=== PATIENT | male | born 2005 | race African-American/Black ===

== ENCOUNTER 2025-02-02 20:07 | Emergency (ER) | payer SELFPAY ==
--- NOTE | ~2025-02-02 | XR_ITS ---
EXAMINATION: XR chest 1V portable DATE: 02/02/2025 22:05 INDICATION: Tachycardia. Marijuana ingestion. TECHNIQUE: AP view of the chest was obtained. COMPARISON: None FINDINGS: The lungs are clear with no focal airspace opacities, pulmonary edema, pleural effusion or pneumothor ax. The cardiomediastinal silhouette is normal. Mild lower thoracic levocurvature. IMPRESSION: 1. No acute cardiopulmonary disease. Reviewed, dictated and finalized at location A.
[2025-02-02 20:07] VITALS: BP 135/74; PULSE 134; RESP 17; TEMP 37.3; O2SAT 100
[2025-02-02 20:12] VITALS: PULSE 139
--- OUTSIDE RECORDS SUMMARY | 2025-02-02 20:22 | XMS_ITS | Clinical Summary ---
Author Organization [facility] Address [address] [place] [address] Phone Care Team Providers Care Poem Writer Name Role Phone Unavailable Primary Care Provider Unavailabl e Allergies No known active allergies Medications No known medications Active Problems Problem Noted Date Diagnosed Date Well child check 04/13/2018 Overview (04/20/2018): 10/2017- Last [facility] with Dr. Ty. Assessment & Plan (04/13/2018 5:56 PM CDT): Anticipatory guidance done including seat belt safety and water safety. Fire safety and bug avoidance discussed. Sexual preferences, safe sex practices, and discussion on healthy relationships discussed. Maintaining healthy friendships, bullying, and mental health also discussed. Handout given to reiterate important points. 5-2-1-0 (5 fruits and vegetables per day, less than 2 hours of screen time per day, at least 1 hour of activity per day, and 0 sweetened beverages) also discussed. School physical form completed today. Hearing screen passed. Depression screens negative. Vaccines updated today. Dentistry referral placed today as pt without dental home. Failed vision screen 04/13/2018 Assessment & Plan (04/13/2018 2:15 PM CDT): Pt failed vision screen, mom told to take pt to [facility]. Saxon-Schlatter's disease of both knees 018 Assessment & Plan (04/13/2018 5:57 PM CDT): Supportive care recommended with ibuprofen, rest, ice, and elevation. Pt and guardian explained what disease is. If no improvement, pt to return to clinic. Bilateral headaches 04/13/2018 Assessment & Plan (04/13/2018 6:35 PM CDT): Occur once in a while as per guardian, without any red flag symptoms. Pt to have vision checked as he failed vision screen and headaches can be refractory to this. Pt told to keep headache diary to better assess frequency and associated symptoms. Red flags of headaches including pain awakening pt from sleep, vomiting after awakening, changes in vision or mental status, persistent vomiting, increasing frequency of headaches, and worsening of headaches discussed with patient and parent. Pt to return in 1 week for ADHD and headache follow up. Immunizations Immunization Administration Dates Next Due DTAP VACCINE, UNSPECIFIED FORMULATION 06/24/2006 ,05/05/2006 DTAP-IPV 04/21/2011 DTAP/HEPB/IPV Vaccine 09/28/2008,02/10/2006 Hepatitis A Vaccine,unspecified Formulation 09/10 Hepatitis A, Pediatric, Unsp ecified Formulation 10/18/2009 Hepatitis B Vaccine,unspecified Formulation 08/14 Hib Vaccine,unspecified Formulation 06/24/2006,1 ,02/10/2006 Human Papillomavirus (HPV) 9-valent Vaccine 08/2017 Influenza Vaccine, Quadrivalent, PF 04/13/2018,1 Influenza Vaccine,unspecified Formulation 2011,06/30/2006 MMR Vaccine 04/21/2011,09/28/2008 Meningococcal MCV4O 12/17/2016 Pneumococcal Vaccine - 13 Valent 06/24/2006,04/13,02/10/2006 Pneumococcal Vaccine Peds - 7 Valent 09/28/2008 Polio Vaccine,unspecified Formulation 05/05/2006 TDAP Vaccine 12/17/2016 Varicella Vaccine Live 04/21/2011,09/28/2008 Family History Medical History Relation Name Comments Diabetes Brother Hypertension Brother Other-comment Brother Sickling disor maricel due to hemoglobin S Sickle Cell Trait Father Congenital Heart Disease Maternal Grandfather Diabetes Maternal Grandfather Hypertension Maternal Grandfather Cancer Maternal Grandmother colon Congenital Heart Disease Maternal Grandmother Diabetes Maternal Grandmother Congenital Heart Disease Maternal Uncle u kamryn when he was 18 Diabetes Mother Sickle Cell Trait Mother Relation Name Status Comments Brother Father Maternal Grandfather Maternal Grandmother Maternal Uncle Mother Social History Tobacco Use Types Packs/Day Years Used Date Smoking Tobacco: Never Smokeless Tobacco: Never Alcohol Use Standard Drinks/Week Comments No 0 (1 standard drink = 0.6 oz pur e alcohol) PHQ-2 Answer Date Recorded PHQ-2 Score 0 03/29/2019 Sex and Gender Information Value Date Recorded Sex Assigned at Not on file Legal Sex Male 8:01 AM [employer] Gender Identity Not on file Sexual Orientation Not on file Last Filed Vital Signs Vital Sign Reading Time Taken Comments Blood Pressure 110/50 04/13/2018 2:03 PM CDT Pulse 78 04/13/2018 2:03 PM CDT Temperature 36.8 C (98.3 F) 04/13/2018 2:03 PM CDT Respiratory Rate 20 04/13/2018 2:03 PM CDT Oxygen Saturation 98% 04/13/2018 2:03 PM CDT Inhaled Oxygen Concentration - - Weight 51.1 kg (112 lb 11.2 oz) 04/13/2018 2:03 PM CDT Height 161.9 cm (5' 3.75) 04/13/2018 2:03 PM CD T Body Mass Index 19.5 04/13/2018 2:03 PM CDT Body Mass Index Percentile 68.53% 04/13/2018 2:0 3 PM CDT Growth Chart: [facility] (Boys, 2-2 0 Years) Plan of Treatment Health Maintenance Due Date Last Done Comments Hepatitis C Virus (HCV) Screening 2005 Human Papillomavirus (HPV) Immunization (2 - Male 2-dose series) 10/12/2018 04/13/2018 Meningococcal B Immunization (1 of 2 - Standard) 2021 SARS-COV-2 Immunization ( - season) 2024 Influenza Immunization (#1) 03/13/202508/2017, 04/20/2014, 04/28/2012, Additional history exists DTaP/Tdap/Td Immunization (7 - Td or Tdap) 12/17/2026 12/17/2016, 04/21/2011, 09/28/2008, Additional history exists Respiratory Syncytial Virus (RSV) Immunization (Adult) (1 - 1-dose 75+ series) 2080 Hepatitis B Immunization Completed 009, 02/10/2006, 2005 Pneumococcal Immunization Combined Completed 09/28/2008, 06/24/2006, 05/05/2006, Additional history exists Hepatitis A Immunization Discontinued 10/18/2009, 09/10 Measles Mumps Rubella (MMR) Immunization Discontinued 04/21/2011, 09/28/2008 Polio (IPV) Immunization Discontinued 011, 09/28/2008, 02/10/2006 Varicella Immunization Discontinued 04/21/2011, 2008 Meningococcal Immunization (ACWY) Aged Out 12/17/2016 No longer eligible based on patient's age to complete this topic Rotavirus Immunization Aged Out No lo nger eligible based on patient's age to complete this topic Insurance MEDICAID [facility] [employer] MEDICAID [facility]
--- NOTE | 2025-02-02 20:37 | ECG_ITS ---
Test Date: 2025-02-02 21:54:03 Measurements Intervals [place] Rate: 117 P: 70 OK: 140 QRS: 55 QRSD: 88 T: 11 QT: 302 QTc: 422 Interpretive Statements SINUS TACHYCARDIA ABNORMAL RHYTHM ECG No previous ECG available for comparison Electronically Signed On 02-04-2025 18:24:26 CDT by Wade Cormier M.D.
--- NOTE | 2025-02-02 20:37 | ED.GENADULT ---
HPI - General Adult General Chief complaint: Unspecified Stated complaint: drug ingestion Time Seen by Provider: 02/02/25 20:07 Source: patient Mode of arrival: ambulatory Limitations: no limitations History of Present Illness HPI narrative: Patient presents after consuming marijuana, it was initially reported as wax but He states he took a cart.Denies previously using marijuana. States he feels weird but otherwise without specific complaints. Was reported that he makes this with mashed potatoes aches. He denies any suicidal ideation. Denies any auditory or visual hallucinations. States Girl, I'm built differently. Related Data Allergies Allergy/AdvReac Type Severity Reaction Status Date / Time No Known Allergies Allergy Unverified 05/12/17 12:50 Exam Narrative: GENERAL: Well-appearing, well-nourished, and in no acute distress. HEAD: Normocephalic, atraumatic. EYES: Non injected, non icteric ENT: Nares clear, no rhinorrhea or epistaxis. Gross auditory acuity intact. NECK: Supple. No meningismus. CHEST: Speaking in full sentences. No respiratory distress. HEART: Tachycardic rate and rhythm. . ABDOMEN: Soft, nondistended. No rigidity or guarding. Not peritoneal EXTREMITIES: Normal range of motion. No lower extremity edema. SKIN: Warm, dry, no rash. NEURO: No focal deficits. Alert and oriented. Answering questions. Following commands. Normal speech without aphasia or dysarthria. PSYCH: Congruent mood and affect. Appearance: Well kempt. Behavior: Calm, good eye contact, in no acute distress. Speech: Appropriate rate, quantity and volume. Denies SI, Auditory/visual hallucinations. Course Vital Signs Vital signs: Vital Signs Temperature 99.2 F 02/02/25 20:07 Pulse Rate 134 H 02/02/25 20:07 Respiratory Rate 17 02/02/25 20:07 Blood Pressure 135/74 02/02/25 20:07 Pulse Oximetry 100 02/02/25 20:07 Oxygen Delivery Room Air 02/02/25 20:07 Temperature 99.2 F 02/02/25 20:07 Pulse Rate 111 H 02/03/25 02:07 Respiratory Rate 14 02/03/25 02:07 Blood Pressure 116/80 02/03/25 02:07 Pulse Oximetry 100 02/03/25 02:07 Oxygen Delivery Room Air 02/02/25 20:07 Medical Decision Making MDM Narrative Medical decision making narrative: Patient presents after ingesting marijuana, initially reported as wax. He states he took a cart (which would employ vape form) but has never previously used marijuana. States he feels weird but can't describe. No complaints otherwise. In the emergency department he is afebrile vital signs notable for tachycardia. Leukopenia with no prior for comparison. Patient has received 1 L IV fluids and remains tachycardic at a rate of 118. 2 L IV fluids ordered as is TSH. D-dimer normal. Thyroid normal. Tachycardia improving, currently 102-104. Patient's aunt feels comfortable taking him home per RN. He has been tolerating PO. He has not become bradypneic or hypoxic. Vital Signs Vital Signs: Vital Signs Temperature 99.2 F 02/02/25 20:07 Pulse Rate 134 H 02/02/25 20:07 Respiratory Rate 17 02/02/25 20:07 Blood Pressure 135/74 02/02/25 20:07 Pulse Oximetry 100 02/02/25 20:07 Oxygen Delivery Room Air 02/02/25 20:07 Temperature 99.2 F 02/02/25 20:07 Pulse Rate 111 H 02/03/25 02:07 Respiratory Rate 14 02/03/25 02:07 Blood Pressure 116/80 02/03/25 02:07 Pulse Oximetry 100 02/03/25 02:07 Oxygen Delivery Room Air 02/02/25 20:07 Lab Data Lab results reviewed: Yes I reviewed the patient's lab results. 02/02/25 20:53 02/02/25 20:53 Labs: Lab Results 02/02/25 02/02/25 02/02/25 Range/Units 20:46 20:53 21:09 WBC 3.6 L (4.5-10.0) K/mm3 RBC 5.46 (4.6-6.20) M/mm3 Hgb 15.2 (14.0-18.0) g/dL Hct 45.2 (42.0-52.0) % MCV 82.8 (80-100) fl MCH 27.8 (26-34) pg MCHC 33.6 (32-36) g/dl RDW 12.3 (11.5-14.5) % Plt Count 205 (150-375) k/mm3 MPV 8.5 (7.4-10.4) fl Immature Gran % (Auto) 0.3 (0-0.5) % Neut % (Auto) 52.6 (45.5-73.1) % Lymph % (Auto) 34.8 (18.3-44.2) % [place] % (Auto) 9.8 H (2.6-8.5) % Eos % (Auto) 1.7 (0-4.4) % Baso % (Auto) 0.8 (0.2-1.2) % Lymph # (Auto) 1.24 (0.9-3.2) K/mm3 [place] # (Auto) 0.4 (0.1-0.6) K/mm3 Eos # (Auto) 0.1 (0-0.3) K/mm3 Baso # (Auto) 0.0 (0.0-0.1) K/mm3 Abs Immat Gran (auto) 0.01 (0.00-0.031) K/mm3 Absolute Neuts (auto) 1.9 (1.3-6.7) K/mm3 Absolute Nucleated RBC 0.000 (0.0-0.012) K/mm3 Band Neutrophils % Not Reportable Nucleated RBC % 0.0 (0.0-0.2) % Atypical Lymphocytes Present Platelet Estimate Adequate (Adequate) Schistocytes None seen D-Dimer < 0.27 (<0.48) ug/mL Sodium 137 (134-143) mmol/L Potassium 3.9 (3.4-5.0) mmol/L Chloride 102 (98-107) mmol/L Carbon Dioxide 26 (22-30) mmol/L Anion Gap 9 (4-12) mmol/L BUN 15 (8-21) mg/dL Creatinine 1.23 (0.7-1.3) mg/dL Estim Creat Clear Calc 98 ml/min Estimated GFR > 60 (59 - ) Glucose 109 (65-110) mg/dL Calcium 9.5 (8.9-10.7) mg/dL Total Bilirubin 0.9 (0.2-1.3) mg/dL AST 28 (17-59) U/L ALT 17 (6-50) U/L Alkaline Phosphatase 86 (58-237) U/L Total Protein 8.0 (6.3-8.6) g/dL Albumin 4.6 (3.7-5.6) g/dL TSH 0.622 (0.465-4.680) uIU/mL Urine Color Yellow (Yellow) Urine Appearance Clear (Clear) Urine pH 7.5 (5.0-9.0) Ur Specific [place] 1.026 (1.001-1.035) Urine Protein Negative (Negative) mg/dL Urine Glucose (UA) Negative (Negative) mg/dL Urine Ketones Trace H (Negative) mg/dL Ur Blood (Man) Negative (Negative) Urine Nitrate Negative (Negative) Urine Bilirubin Negative (Negative) Urine Urobilinogen 1.0 (<2.0) mg/dL Leukocyte Esterase Rfl Negative (Negative) MICHELLE/UL Urine Opiates Screen Negative (Negative) Urine Methadone Screen Negative (Negative) Ur Barbiturates Screen Negative (Negative) Ur Phencyclidine Scrn Negative (Negative) Ur Amphetamine Screen Negative (Negative) U Benzodiazepines Scrn Negative (Negative) Urine Cocaine Screen Negative (Negative) U Cannabinoids Screen Positive A (Negative) Ethyl Alcohol < 10 (<10) mg/dL Imaging Data Radiologist's impression: Impressions Chest X-Ray 02/02/25 22:06 IMPRESSION: 1. No acute cardiopulmonary disease. ECG Data EKG #1: Attestation: I personally reviewed and interpreted this ECG as follows: ECG completion date: 02/02/25 ECG completion time: 21:54 Interpretation: Sinus tachycardia at a rate of 117 beats per minute. NC interval 140. QRS 88. QT/QTC 302/372. Good R-wave progression across the precordial leads. T-wave inversion in 3 but otherwise upright in contiguous inferior leads 2 and AVF. No other T-wave inversions. Normal axis. Discharge Plan Discharge Clinical Impression: Drug ingestion, Leukopenia, Marijuana use Patient Disposition: Home Condition: Stable Instructions: Antibiotic Form, Cannabis Use Disorder (ED) Additional Instructions: You should metabolize the marijuana overnight and into tomorrow morning. Follow-up with your primary care physician. Return to the emergency department with any new or worsening symptoms. Patient Language: Czech Follow-up/Referrals: Karson,Teofilo Jeff MD [Primary Care Provider] - Stand Alone Forms: Work/School Release IP Time of Disposition: 23:07
[2025-02-02] MEDS: SODIUM CHLORIDE 0.9% IV 1,000 ML 999 ML IV CONT ×2 (20:55→21:57)
[2025-02-02 21:09] LABS: Hematocrit 45.2 % (42.0-52.0); Hemoglobin 15.2 g/dL (14.0-18.0); Immature Granulocyte Percent A 0.3 % (0-0.5); Lymphocytes Absolute Auto 1.24 K/mm3 (0.9-3.2); Mean Corpuscular HGB Conc 33.6 g/dl (32-36); Mean Corpuscular Hemoglobin 27.8 pg (26-34); Mean Corpuscular Volume 82.8 fl (80-100); Nucleated Red Blood Cells Absolute Auto 0.000 K/mm3 (0.0-0.012); Nucleated Red Blood Cells Perc 0.0 % (0.0-0.2); Platelet Count Result 205 k/mm3 (150-375); Red Blood Count 5.46 M/mm3 (4.6-6.20); White Blood Count 3.6 K/mm3 (4.5-10.0)
[2025-02-02 21:20] VITALS: BP 110/64; PULSE 112; RESP 12; O2SAT 99
[2025-02-02 21:20] LABS: Schistocytes None Seen
[2025-02-02 21:31] LABS: Alanine Aminotransferase 17 U/L (6-50); Albumin Level 4.6 g/dL (3.7-5.6); Alkaline Phosphatase 86 U/L (58-237); Anion Gap 9 mmol/L (4-12); Aspartate Amino Transferase 28 U/L (17-59); Bilirubin,Total 0.9 mg/dL (0.2-1.3); Blood Urea Nitrogen 15 mg/dL (8-21); Calcium 9.5 mg/dL (8.9-10.7); Carbon Dioxide 26 mmol/L (22-30); Chloride 102 mmol/L (98-107); Estimated CRCL calculation 98 ml/min; Estimated Glomerular Filt Rate > 60; Glucose 109 mg/dL (65-110); Potassium 3.9 mmol/L (3.4-5.0); Sodium 137 mmol/L (134-143); Total Protein 8.0 g/dL (6.3-8.6)
[2025-02-02 21:31] LABS: Add Urine Microscopic? NO; Appearance Urine Clear (Clear); Glucose Urine UA Negative (Negative); Leukocyte Esterase Ur Negative LEU/UL (Negative); Nitrate Urine Negative (Negative); Specific Grav Ur 1.026 (1.001-1.035)
[2025-02-02 21:46] LABS: Cannabinoid Screen Urine Positive (Negative)
[2025-02-02 22:35] LABS: Thyroid Stimulating Hormone 0.622 uIU/mL (0.465-4.680)
[2025-02-02 23:20] VITALS: BP 116/80; PULSE 111; RESP 14; O2SAT 100
[2025-02-03 02:07] VITALS: BP 116/80; PULSE 111; RESP 14; O2SAT 100
== END 2025-02-03 02:10 | disposition home or self-care (01) ==
PROVIDERS: Emergency Provider Student in an Organized Health Care Education/Training Program; PCP Pediatrics
DX: T40.711A Poisoning by cannabis, accidental (unintentional), initial encounter (principal); R00.0 Tachycardia, unspecified; D72.819 Decreased white blood cell count, unspecified
CPT/HCPCS: 36415; 71045; 80053; 80307; 81003; 82077; 84443; 85025; 85380; 93005; 96360; 96361; 99284; J7030